=== PATIENT | male | born 1990 | race Caucasian/White ===

== ENCOUNTER 2021-08-30 11:45 | Outpatient (REF) | payer OTHER, SELFPAY ==
[2021-08-30 13:43] LABS: MANUAL DIFF FLAG NO
[2021-08-30 13:56] LABS: Basophils Percent Auto 0.6 % (0-2); Eosinophils Absolute Auto 0.2 X10*3/uL (0.0-0.4); Eosinophils Percent Auto 4.1 % (0-4); Hemoglobin 15.4 g/dl (14.0-18.0); Imm Gran Abs Auto 0.02 X10*3/uL (0.00-0.03); Imm Gran Pct Auto 0.4 % (0.0-0.4); Lymphocytes Absolute Auto 1.9 X10*3/uL (1.2-4.9); Lymphocytes Percent Auto 34.6 % (20-40); Mean Corpuscular HGB Conc 32.8 g/dl (31.0-36.0); Mean Corpuscular Hemoglobin 28.6 pg (27.0-33.0); Mean Corpuscular Volume 87.4 fL (80.0-98.0); Mean Platelet Volume 9.2 fL (9.4-12.4); Monocytes Absolute Auto 0.4 X10*3/uL (0.1-1.2); Neutrophils Absolute Auto 2.9 x10*3/uL (2.0-8.3); Neutrophils Percent Auto 53.3 % (45-73); Platelet Count 302 X10*3/uL (160-400); Red Blood Count 5.38 X10*6/uL (4.60-5.80); Red Cell Distribution Width 13.3 % (11.0-16.0); White Blood Count 5.4 X10*3/uL (4.8-10.8)
[2021-08-30 14:05] LABS: Appearance Urine CLEAR; Color Urine YELLOW; Glucose Urine UA NEG (NEG); Leukocyte Esterase Urine NEG (NEG); Nitrite Urine NEG (NEG); Urine Blood NEG (NEG); Urine Ketones NEG (NEG); Urine Protein NEG (NEG-TRACE)
[2021-08-30 14:17] LABS: Alanine Aminotransferase 12 U/L (0-40); Albumin Level 4.5 g/dL (3.5-5.0); Alkaline Phosphatase 64 U/L (39-117); Anion Gap 11 (12-20); Aspartate Amino Transferase 12 U/L (5-37); Bilirubin Total 0.5 mg/dL (0.0-1.0); Blood Urea Nitrogen 13 mg/dL (9-16); Calcium 9.8 mg/dL (8.4-10.2); Carbon Dioxide 26 mmol/L (22-29); Chloride 105 mmol/L (96-108); Cholesterol 308 mg/dL; Estimated Glomerular Filt Rate > 60; Glucose Fasting 97 mg/dL (60-99); HDL Cholesterol 57 mg/dL; LDL Cholesterol Calculated 228 mg/dl; Potassium 4.3 mmol/L (3.3-5.1); Sodium 138 mmol/L (135-145); Total Protein 7.6 g/dL (6.5-8.0); Triglycerides 118 mg/dL
[2021-08-30 14:43] LABS: TSH reflex Free T4 1.68 uIU/mL (0.32-4.0)
== END 2021-08-30 11:46 | disposition home or self-care (01) ==
LOC: HO.HMGCLDS 11:45
PROVIDERS: Visit Provider Nurse Practitioner Family
DX: F41.9 Anxiety disorder, unspecified (principal)
CPT/HCPCS: 36415; 80053; 80061; 81003; 84443; 85025

== ENCOUNTER 2022-09-03 10:20 | Outpatient (REF) | payer OTHER, SELFPAY ==
[2022-09-03 11:19] LABS: MANUAL DIFF FLAG NO
[2022-09-03 11:30] LABS: Appearance Urine Clear; Color Urine Yellow; Glucose Urine UA Negative (Negative); Leukocyte Esterase Urine Negative (Negative); Nitrite Urine Negative (Negative); PH 5.5 (5.0-9.0); Specific Gravity - Urine 1.025 (1.005-1.025); Urine Blood Negative (Negative); Urine Ketones Negative (Negative); Urine Protein Negative (Neg-Trace)
[2022-09-03 11:50] LABS: Basophils Percent Auto 0.5 % (0-2); Eosinophils Absolute Auto 0.2 X10*3/uL (0.0-0.4); Eosinophils Percent Auto 2.9 % (0-4); Hematocrit 47.1 % (42.0-52.0); Hemoglobin 15.7 g/dl (14.0-18.0); Imm Gran Abs Auto 0.01 X10*3/uL (0.00-0.03); Imm Gran Pct Auto 0.2 % (0.0-0.4); Lymphocytes Percent Auto 36.3 % (20-40); Mean Corpuscular HGB Conc 33.3 g/dl (31.0-36.0); Mean Corpuscular Volume 86.9 fL (80.0-98.0); Mean Platelet Volume 9.2 fL (9.4-12.4); Monocytes Absolute Auto 0.4 X10*3/uL (0.1-1.2); Monocytes Percent Auto 7.1 % (2-11); Neutrophils Absolute Auto 2.9 x10*3/uL (2.0-8.3); Platelet Count 327 X10*3/uL (160-400); Red Blood Count 5.42 X10*6/uL (4.60-5.80); Red Cell Distribution Width 13.2 % (11.0-16.0); White Blood Count 5.5 X10*3/uL (4.8-10.8)
[2022-09-03 13:05] LABS: Alanine Aminotransferase 13 U/L (0-40); Alkaline Phosphatase 56 U/L (39-117); Anion Gap 13 (12-20); Aspartate Amino Transferase 14 U/L (5-37); Bilirubin Total 0.5 mg/dL (0.0-1.0); Blood Urea Nitrogen 14 mg/dL (9-16); Calcium 9.3 mg/dL (8.4-10.2); Carbon Dioxide 24 mmol/L (22-29); Chloride 105 mmol/L (96-108); Cholesterol 265 mg/dL; Estimated Glomerular Filt Rate > 60; Glucose Fasting 86 mg/dL (60-99); HDL Cholesterol 53 mg/dL; LDL Cholesterol Calculated 187 mg/dl; Potassium 3.9 mmol/L (3.3-5.1); Sodium 138 mmol/L (135-145); Total Protein 7.1 g/dL (6.5-8.0); Triglycerides 129 mg/dL
[2022-09-03 13:27] LABS: TSH reflex Free T4 1.57 uIU/mL (0.32-4.0)
== END 2022-09-03 10:21 | disposition home or self-care (01) ==
LOC: HO.HMGCLDS 10:20
PROVIDERS: PCP Nurse Practitioner Family; Visit Provider Nurse Practitioner Family
DX: F41.9 Anxiety disorder, unspecified (principal)
CPT/HCPCS: 36415; 80053; 80061; 81003; 84443; 85025

== ENCOUNTER 2023-03-08 13:50 | Outpatient (REF) | payer OTHER, SELFPAY ==
[2023-03-08 16:05] LABS: MANUAL DIFF FLAG NO
[2023-03-08 16:10] LABS: Basophils Percent Auto 0.7 % (0-2); Eosinophils Absolute Auto 0.2 X10*3/uL (0.0-0.4); Eosinophils Percent Auto 3.4 % (0-4); Hematocrit 47.8 % (42.0-52.0); Hemoglobin 15.8 g/dl (14.0-18.0); Imm Gran Abs Auto 0.02 X10*3/uL (0.00-0.03); Imm Gran Pct Auto 0.4 % (0.0-0.4); Lymphocytes Percent Auto 35.4 % (20-40); Mean Corpuscular HGB Conc 33.1 g/dl (31.0-36.0); Mean Corpuscular Hemoglobin 29.6 pg (27.0-33.0); Mean Corpuscular Volume 89.7 fL (80.0-98.0); Mean Platelet Volume 9.2 fL (9.4-12.4); Monocytes Absolute Auto 0.5 X10*3/uL (0.1-1.2); Monocytes Percent Auto 8.1 % (2-11); Neutrophils Absolute Auto 2.9 x10*3/uL (2.0-8.3); Platelet Count 311 X10*3/uL (160-400); Red Blood Count 5.33 X10*6/uL (4.60-5.80); Red Cell Distribution Width 13.1 % (11.0-16.0); White Blood Count 5.5 X10*3/uL (4.8-10.8)
[2023-03-08 16:29] LABS: Alanine Aminotransferase 15 U/L (0-40); Albumin Level 4.2 g/dL (3.5-5.0); Alkaline Phosphatase 58 U/L (39-117); Anion Gap 10 (12-20); Aspartate Amino Transferase 13 U/L (5-37); Bilirubin Total 0.4 mg/dL (0.0-1.0); Blood Urea Nitrogen 14 mg/dL (9-16); Calcium 9.1 mg/dL (8.4-10.2); Carbon Dioxide 26 mmol/L (22-29); Chloride 104 mmol/L (96-108); Cholesterol 270 mg/dL (<200); Estimated Glomerular Filt Rate > 60; Glucose Fasting 89 mg/dL (60-99); HDL Cholesterol 55 mg/dL (>40); LDL Cholesterol Calculated 185 mg/dL (<100); Sodium 136 mmol/L (135-145); Total Protein 7.3 g/dL (6.5-8.0); Triglycerides 154 mg/dL (<150)
[2023-03-08 16:32] LABS: Appearance Urine Clear; Color Urine Yellow; Glucose Urine UA Negative (Negative); Leukocyte Esterase Urine Negative (Negative); Nitrite Urine Negative (Negative); PH 7.5 (5.0-9.0); Specific Gravity - Urine 1.015 (1.005-1.025); Urine Blood Negative (Negative); Urine Ketones Negative (Negative); Urine Protein Negative (Neg-Trace)
[2023-03-08 16:46] LABS: TSH reflex Free T4 1.77 uIU/mL (0.32-4.0)
== END 2023-03-08 13:51 | disposition home or self-care (01) ==
LOC: HO.HMGCLDS 13:50
PROVIDERS: PCP Nurse Practitioner Family; Visit Provider Nurse Practitioner Family
DX: Z00.00 Encounter for general adult medical examination without abnormal findings (principal); Z13.220 Encounter for screening for lipoid disorders; Z13.29 Encounter for screening for other suspected endocrine disorder
CPT/HCPCS: 36415; 80053; 80061; 81003; 84443; 85025

== ENCOUNTER 2023-03-12 10:50 | Outpatient (AMB) | payer OTHER, SELFPAY ==
--- NOTE | 2023-03-12 10:54 | MHC.PC.OV ---
Vital Signs 03/12/23 11:07 Height 5 ft 10 in Weight 291 lb BMI 41.7 BP 108/70 Blood Pressure Location Rt brachial Position Sitting Pulse 69 Pulse Source Pulse Oximeter Pulse Oximetry (%) 98 Oxygen Delivery Method Room Air Intake Visit Reasons: 6 Month F/Up Intake Note: Pt is here today for his 6mo. f/u Allergies No Known Allergies [No Known Allergies*] Allergy (Verified 03/12/23 11:07) Medication List - Last Reconciled 03/12/23 by EARNEST Jaimes clonazepam 0.5 mg PO DAILY PRN fluoxetine 40 mg PO gabapentin 400 mg PO TID Tobacco use date assessed: 03/12/23 Dental Screening Dental Screen Date: 03/12/23 Did you have a dental visit in the last 12 months?: No Was dental information given to patient?: Patient declined HPI 6 Month F/Up HPI Details anxiety and depression: back in october, pt's uncle passed, he was like my father . Pt reports having a psychiatrist and therapist. pt denies any SI or HI. Dyslipidemia: educated on proper diet, exercise, pt refuses to take anymore medication currently. [facility] Medical History Anxiety Chronic GERD Elevated liver enzymes Immunization declined Palpitations Family History Paternal Grandfather Mental health disorder Paternal Grandmother Mental health disorder Social History Housing: Apartment Patient Tobacco Use Status: Never used Tobacco e-Cigarette/Vaping Use: Never Used Second Hand Smoke Exposure: No service: No Current occupational status: employed Current occupation: [employer] Current occupational exposures/hazards: No Cognitive needs: No Hearing needs: No Vision needs: No Questionnaire Thrive Questionnaire Date Thrive assessed: 03/12/23 AUDIT C Alcohol Use Questionnaire (AUDIT-C) 1. How often do you have a drink containing alcohol?: Monthly or less 2. How many drinks containing alcohol do you have on a typical day when you are drinking?: 1 or 2 3. How often do you have six or more drinks on one occasion?: Never Total Score: 1 ERIC-7 AMB Questionnaire ERIC-7 Date ERIC - 7 assessed: 02/15/21 Source: Developed by Drs. Shayan Preston, Korin Sandra, Jd Solomon and colleagues, with an educational crispin from [employer]. Physical exam (Primary Care) Tobacco/Smoking Status: Tobacco use Status Tobacco use date assessed 09/06/22 03/12/23 10:55 Patient Tobacco Use Status Never used Tobacco 03/12/23 10:55 e-Cigarette/Vaping Use Never Used 03/12/23 10:55 Thrive Assessment: Date of Thrive Assessment Date Thrive assessed 02/15/21 03/12/23 10:55 Const General: cooperative and no acute distress Nutritional Appearance: obese and overweight Resp Effort & Inspection: normal respiratory effort Auscultation: clear to auscultation bilaterally Cardio Rate: regular rate Rhythm: regular rhythm Heart sounds: S1 normal heart sound present, S2 normal heart sound present and no murmurs Psych Appearance: grossly normal Mental Status: mental status grossly normal Speech and movement: Normal speech and movement present Affect: Anxious affect present Attitude: Avoids eye contact (attititude/behavior) Thought process: Normal thought process present Thought content: Normal thought content present Insight: Good insight present (Psych) Judgement: Good judgement present (Psych) Assessment and Plan Assessment & Plan (1) Dyslipidemia: Code(s): E78.5 - Hyperlipidemia, unspecified Plan: refuses statin, or any other medication currently (2) Anxiety: Code(s): F41.9 - Anxiety disorder, unspecified Plan: continue same med routine, follow up with psychiatry and a therapist Coding Level of Care Code Est Pt Level 3 (94529) Diagnoses Dyslipidemia E78.5 Anxiety F41.9
[2023-03-12 11:07] VITALS: BP 108/70; PULSE 69; O2SAT 98; BMI 41.7
== END 2023-03-12 11:53 | disposition home or self-care (01) ==
PROVIDERS: PCP Nurse Practitioner Family; Visit Provider Nurse Practitioner Family
DX: E78.5 Hyperlipidemia, unspecified (principal); F41.9 Anxiety disorder, unspecified
CPT/HCPCS: 99213

== ENCOUNTER 2023-09-06 10:22 | Outpatient (AMB) | payer OTHER, SELFPAY ==
--- NOTE | 2023-09-06 10:56 | MHC.OFFVIS ---
Vital Signs 09/06/23 11:02 BP 118/80 Blood Pressure Location Rt brachial Position Sitting Pulse 79 Pulse Source Pulse Oximeter Pulse Oximetry (%) 98 Oxygen Delivery Method Room Air Intake Visit Reasons: INP-Sleep apnea, unspecified-Unable to lvm Intake Note: Patient presents for apnea evaluation. feeing tired all the time waking up gasping with rapid heartbeat and vivid dreams . Allergies No Known Allergies [No Known Allergies*] Allergy (Verified 09/06/23 11:03) Medication List - Last Reconciled 09/09/23 by ALISTAIR Coe clonazepam 0.5 mg PO DAILY PRN fluoxetine 40 mg PO gabapentin 400 mg PO TID HPI Comments Details: 33-yr-old male presents for new in-person patient visit for sleep consultation. Patient reports that he would like to evaluate his sleep, as he is tired of feeling tired . PMH- anxiety, HLD, obesity- pt is motivated to lose weight- but states he needs nutrition support. Sleep questionnaire: Have you ever been diagnosed with a sleep disorder? No Have you ever had a sleep study in the past? No Have you ever been treated for a sleep disorder? No Do you take medications for a sleep disorder? No Do you have difficulty initiating sleep? Yes Do you have difficulty maintaining sleep? Yes Wakes up frequently- but can easily fall back asleep Do you wake up tired? Yes Do you have daytime tiredness or fatigue? Yes Do you easily fall asleep when inactive? Yes Do you snore? Yes Do you wake up gasping at night? Yes Do you have episodes of apneas? Unaware Do you have episodes of nocturnal chest pain or dyspnea? Feels that he needs to take a few breathes after gasping arousals to feel normal. Do you have bruxism? Probably. If yes, do you wear a mouth guard when sleeping?No Do you have headaches upon awakening? Sometimes. The headache can linger. Denies NETTLES a/w photophobia, phonophobia, or nausea. Do you wake up with dry mouth or throat? Yes Do you have GERD? Rarely Do you have nocturia? no- just voids once a night Do you have nocturnal leg cramps? No Do you have symptoms of restless legs? Fidgetty- unsure if at rest, but more so if anxious. Will shake his leg if watching TV. If anxious, has to take a walk. Do you act out your dreams? Feels like he is talking in his sleep, or feel like he is yelling Do you have sleep paralysis? No Do you have drop attacks? No Do you ever have hypnogenic hallucinations? Vivid dreams- can see dream when he wakes up. Hypersomnolence questionnaire: Have you ever had episodes of sudden weakness? Maybe- can feel weak sometimes Have you ever had episodes of sudden weakness associated with strong emotions? Maybe Sleep hygiene questionnaire: What is your usual sleep routine? Usual bedtime is at 11pm-1am; Usual wake-up time is at 6:30am or 10:30am. Do you take naps? love naps Is your sleep environment cool, dark, and quiet? keeps room cool and dark, uses some TV for background noise Do you exercise? He has recently started doing a home exercise program most days. Walks some days. On his feet all day at work. Do you take caffeine or other stimulants? Does not really like caffeine. Do you use electronics in bed? TV for background What is your work schedule? 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 [facility] Medical History Anxiety Chronic GERD Elevated liver enzymes Immunization declined Palpitations Family History Paternal Grandfather Mental health disorder Paternal Grandmother Mental health disorder Social History Housing: Apartment Patient Tobacco Use Status: Never used Tobacco e-Cigarette/Vaping Use: Never Used Second Hand Smoke Exposure: No service: No Current occupational status: employed Current occupation: [employer] Current occupational exposures/hazards: No Cognitive needs: No Hearing needs: No Vision needs: No Physical Exam Vital Signs: Last Vital Signs Pulse 79 09/06/23 11:02 BP 118/80 09/06/23 11:02 Pulse Ox 98 09/06/23 11:02 Oxygen Delivery Method Room Air 09/06/23 11:02 Const General: no acute distress Orientation/consciousness: patient oriented x3 HEENT Other: Mallampati stage 4 Resp Effort & Inspection: normal respiratory effort and able to speak in complete sentences Auscultation: clear to auscultation bilaterally Cardio Rate: regular rate Rhythm: regular rhythm Heart sounds: S1 normal heart sound present and S2 normal heart sound present Neuro General: patient oriented x3 Motor exam (neuro): 5/5 motor strength present throughout Psych Mental Status: mental status grossly normal Speech and movement: Normal speech and movement present Attitude: cooperative Assessment & Plan Assessment & Plan (1) Excessive daytime sleepiness: Code(s): G47.19 - Other hypersomnia Category: Medical (2) Sleep difficulties: Code(s): G47.9 - Sleep disorder, unspecified Category: Medical (3) Snoring: Code(s): R06.83 - Snoring Category: Medical (4) BMI 40.0-44.9, adult: Code(s): Z68.41 - Body mass index [BMI] 40.0-44.9, adult Category: Medical Plan Pt is advised to undergo sleep study to assess for sleep apnea: in-lab PSG. Will take the liberty of referring pt for weight management consult. Will f/u with pt after study to discuss results and appropriate treatment options. Pt to call with any worsening concerns or questions. Orders: Orders RT PSG in-lab sleep study Today G47.19 - Other hypersomnia, G47.9 - Sleep disorder, unspecified, R06.83 - Snoring, Z68.41 - Body mass index [BMI] 40.0-44.9, adult Referrals Medical Weight Management Referral Z68.41 - Body mass index [BMI] 40.0-44.9, adult Coding Level of Care Code New Pt Level 4 (44026) Diagnoses Excessive daytime sleepiness G47.19 Sleep difficulties G47.9 Snoring R06.83 BMI 40.0-44.9, adult Z68.41 [place] Sleepiness Scale Questions Sitting and reading: high chance of dozing Watching TV: high chance of dozing Sitting inactive in a theater, movie etc.: moderate chance of dozing As a passenger in a car for an hour without break: high chance of dozing Lying down in the afternoon when circumstances permit: high chance of dozing Sitting and talking to someone: would never doze Sitting quietly after lunch without alcohol: high chance of dozing In a car, while stopped for a few minutes in the traffic: would never doze ESS < 10: normal, ESS > 12: pathologic: 17
[2023-09-06 11:02] VITALS: BP 118/80; PULSE 79; O2SAT 98
== END 2023-09-06 11:53 | disposition home or self-care (01) ==
PROVIDERS: PCP Nurse Practitioner Family; Visit Provider Nurse Practitioner Family
DX: G47.19 Other hypersomnia (principal); G47.9 Sleep disorder, unspecified; R06.83 Snoring; Z68.41 Body mass index [BMI] 40.0-44.9, adult
CPT/HCPCS: 99204

== ENCOUNTER → 2023-09-06 10:22 | Outpatient (BNVA) | payer OTHER, SELFPAY | PROVIDERS: PCP Nurse Practitioner Family; Visit Provider Nurse Practitioner Family | DX: G47.19 Other hypersomnia (principal); G47.9 Sleep disorder, unspecified; R06.83 Snoring | CPT/HCPCS: 99202 ==

== ENCOUNTER 2023-10-01 11:12 | Outpatient (REF) | payer OTHER, SELFPAY ==
[2023-10-01 13:34] LABS: Cholesterol 249 mg/dL (<200); HDL Cholesterol 49 mg/dL (>40); LDL Cholesterol Calculated 182 mg/dL (<100); Triglycerides 90 mg/dL (<150)
== END 2023-10-01 11:13 | disposition home or self-care (01) ==
LOC: HO.HMGCLDS 11:12
PROVIDERS: PCP Nurse Practitioner Family; Visit Provider Nurse Practitioner Family
DX: E78.5 Hyperlipidemia, unspecified (principal)
CPT/HCPCS: 36415; 80061

== ENCOUNTER 2023-10-02 10:32 | Outpatient (AMB) | payer OTHER, SELFPAY ==
--- NOTE | 2023-10-02 10:53 | MHC.PC.OV ---
Vital Signs 10/02/23 10:56 Height 5 ft 10 in Weight 268 lb BMI 38.4 BP 108/70 Blood Pressure Location Rt brachial Position Sitting Pulse 78 Pulse Source Pulse Oximeter Pulse Oximetry (%) 97 Oxygen Delivery Method Room Air Intake Visit Reasons: Annual PE Intake Note: Patient here for physical exam. Allergies No Known Allergies [No Known Allergies*] Allergy (Verified 10/02/23 10:56) Tobacco use date assessed: 03/12/23 Dental Screening Dental Screen Date: 03/12/23 HPI Annual PE HPI Details Pt is here for a PE. Will order labs. Pt's last lipids were elevated. Refuses medication for this. Will continue to monitor. Pt is working on weight loss. PFSH Medical History Immunization declined Anxiety Elevated liver enzymes Palpitations Chronic GERD Family History Paternal Grandfather Mental health disorder Paternal Grandmother Mental health disorder Social History Housing: Apartment Patient Tobacco Use Status: Never used Tobacco e-Cigarette/Vaping Use: Never Used Second Hand Smoke Exposure: No service: No Current occupational status: employed Current occupation: [employer] Current occupational exposures/hazards: No Cognitive needs: No Hearing needs: No Vision needs: No Questionnaire PHQ-9 Over the last 2 weeks, how often have you been bothered by any of the following problems? 1. Little interest or pleasure in doing things: several days 2. Feeling down, depressed, or hopeless: several days 3. Trouble falling or staying asleep, or sleeping too much: more than half the days 4. Feeling tired or having little energy: more than half the days 5. Poor appetite or overeating: several days 6. Feeling bad about yourself - or that you are a failure or have let yourself or your family down: several days 7. Trouble concentrating on things, such as reading the newspaper or watching television: several days 8. Moving or speaking so slowly that other people could have noticed. Or the opposite - being so fidgety or restless that you have been moving around a lot more than usual: several days 9. Thoughts that you would be better off or of hurting yourself in some way: not at all Total score: 10 Depression Screening Interpretation: Positive (has a psychiatrist and therapist, denies any SI or HI) Depression Screening Follow-up: Existing condition and In treatment Depression Screening Done: Yes 55289 - PHQ-9 Billing: Yes Source: Developed by Drs. Shayan Preston, Korin Sandra, Jd Solomon and colleagues, with an educational crispin from [employer]. Thrive Questionnaire Date Thrive assessed: 03/12/23 I am a: Patient What is your living situation today?: I have a steady place to live Within the past 12 months, did the food you bought not last and you didn't have the money to get more?: Never true Within the past 12 months, did you worry whether your food would run out before you got money to buy more?: Never true Do you have trouble paying for medicines?: No Do you have trouble getting transportation to medical appointments?: No Do you have trouble paying your heating and electricity bill?: No Do you have trouble taking care of your child, family member or friend?: No Do you have trouble with day-to-day activities such as bathing, preparing meals, shopping, managing finances, etc.?: No Are you currently unemployed and looking for a job?: No Are you interested in more education?: Yes Please select the resources that you would like help with: Housing/Correction Currently or been in a relationship where the following occur: No concerns reported THRIVE Score: 0 AUDIT C Alcohol Use Questionnaire (AUDIT-C) 1. How often do you have a drink containing alcohol?: Never Total Score: 0 Score Reviewed/Action Taken: No ERIC-7 AMB Questionnaire ERIC-7 Date ERIC - 7 assessed: 10/02/23 Feeling nervous, anxious, or on edge: 1 = Several days Not being able to stop or control worryin = Several days Worrying too much about different things: 1 = Several days Trouble relaxin = Several days Being so restless that it is hard to sit still: 1 = Several days Becoming easily annoyed or irritable: 1 = Several days Feeling afraid as if something awful might happen: 0 = Not at all Total ERIC-7 score (0-4 normal; 5-9 mild; 10-14 moderate; 15-21 severe): 6 Source: Developed by Drs. Shayan Preston, Korin Sandra, Jd Solomon and colleagues, with an educational crispin from [employer]. ERIC-7 Assessment Billing ERIC-7 Assessment Tool: ERIC-7 Assessment 10958 Review of Systems Const Denies chills and Denies fever(s) Eyes Denies blurry vision ENT Denies vertigo, Denies dizziness and Denies sore throat Card Denies chest pain at rest, Denies chest pain with activity, Denies diaphoresis, Denies dyspnea and Denies dyspnea on exertion Resp Denies cough, Denies dyspnea, Denies dyspnea on exertion and Denies wheezing GI Denies abdominal pain, Denies melena, Denies hematochezia, Denies constipation, Denies diarrhea and Denies loose stools Denies hematuria Musc Denies numbness and Denies tingling Skin/Breast Denies lesions Neuro Denies vertigo, Denies dizziness, Denies numbness and Denies tingling Psych Denies anxiety, Denies depression, Denies homicidal ideation, Denies suicidal ideation and Denies other (substance abuse) Aller/Immun Denies wheezing Physical exam (Primary Care) Vital Signs: Last Vital Signs Pulse 78 10/02/23 10:56 BP 108/70 10/02/23 10:56 Pulse Ox 97 10/02/23 10:56 Oxygen Delivery Method Room Air 10/02/23 10:56 BMI result Body Mass Index 38.4 Tobacco/Smoking Status: Tobacco use Status Tobacco use date assessed 03/12/23 10/02/23 10:56 Patient Tobacco Use Status Never used Tobacco 10/02/23 10:56 e-Cigarette/Vaping Use Never Used 10/02/23 10:56 PHQ-9: PHQ-9 Score PHQ-9: Total score 10 10/02/23 11:07 Depression Screening Interpretation: Positive (has a psychiatrist and therapist, denies any SI or HI) Depression Screening Follow-up: Existing condition and In treatment Thrive Assessment: Date of Thrive Assessment Date Thrive assessed 03/12/23 10/02/23 10:56 Currently or been in a relationship where the following occur: No concerns reported Const General: cooperative Nutritional Appearance: well nourished and obese Orientation/consciousness: patient oriented x3 HENMT Head: Yes normal to inspection, Yes normocephalic and Yes atraumatic Ears: TM's normal bilaterally Eyes General: appearance normal, both eyes and all related structures Alignment and Position: alignment normal and position normal Neck Neck: Yes normal visual inspection and Yes no lymphadenopathy Thyroid: Thyroid normal Resp Effort & Inspection: normal respiratory effort Auscultation: clear to auscultation bilaterally Cardio Rate: regular rate Rhythm: regular rhythm Heart sounds: S1 normal heart sound present, S2 normal heart sound present and no murmurs GI Palpation (GI): Soft to palpation and nontender Auscultation: normal bowel sounds Male General Exam: Yes normal external exam Penis: normal penis Scrotum: scrotum normal, testes descended bilaterally and no inguinal hernias Testes: no testicular mass Skin Rashes: no rashes Neuro General: patient oriented x3, moves all extremities, no focal motor deficits and deep tendon reflexes 2+ bilaterally Romberg Test: Negative Psych Appearance: grossly normal Mental Status: mental status grossly normal Speech and movement: Normal speech and movement present Affect: normal affect Attitude: cooperative Thought process: Normal thought process present Thought content: Normal thought content present Insight: Good insight present (Psych) Judgement: Good judgement present (Psych) Assessment and Plan Assessment & Plan (1) Physical exam: Code(s): Z.00 - Encounter for general adult medical examination without abnormal findings Plan: Labs ordered Plan The patient agreed to the use of a registered medical assistant for this encounter. Scribed for EARNEST Brantley by Rayna Colon registered medical assistant, on 10/02/2023 at 11:10 EST. Orders: Orders Complete Blood Count Auto Diff 2 Months Z00.00 - Encounter for general adult medical examination without abnormal findings TSH reflex Free T4 2 Months Z00.00 - Encounter for general adult medical examination without abnormal findings UA CC w/rflx Micro + Cult 2 Months Z00.00 - Encounter for general adult medical examination without abnormal findings Coding Level of Care Code Est Pt Prev Care 18-39y(92445) Diagnoses Physical exam Z00.00 Additional Codes ERIC-7 Assessment Billing - ERIC-7 Assessment Tool: ERIC-7 Assessment 55219 ([id number])
[2023-10-02 10:56] VITALS: BP 108/70; PULSE 78; O2SAT 97; BMI 38.4
== END 2023-10-02 11:17 | disposition home or self-care (01) ==
PROVIDERS: PCP Nurse Practitioner Family; Visit Provider Nurse Practitioner Family
DX: Z00.00 Encounter for general adult medical examination without abnormal findings (principal)
CPT/HCPCS: 99395

== ENCOUNTER → 2023-10-10 20:30 | Outpatient (REF) | payer OTHER, SELFPAY | LOC: HO.SL 20:30 | PROVIDERS: PCP Nurse Practitioner Family; Visit Provider Nurse Practitioner Family | DX: G47.19 Other hypersomnia (principal); Z68.41 Body mass index [BMI] 40.0-44.9, adult; R06.83 Snoring; G47.9 Sleep disorder, unspecified | CPT/HCPCS: 95810 ==

== ENCOUNTER → 2023-10-10 22:24 | Outpatient (BNV) | payer OTHER, SELFPAY | PROVIDERS: PCP Nurse Practitioner Family; Visit Provider Psychiatry & Neurology Neurology | DX: G47.19 Other hypersomnia (principal); R06.83 Snoring | CPT/HCPCS: 95810 ==

== ENCOUNTER 2024-03-17 11:13 | Outpatient (REF) | payer OTHER, SELFPAY ==
[2024-03-17 13:10] LABS: MANUAL DIFF FLAG NO
[2024-03-17 13:26] LABS: Basophils Percent Auto 0.4 % (0-2); Eosinophils Absolute Auto 0.2 X10*3/uL (0.0-0.4); Eosinophils Percent Auto 3.1 % (0-4); Hematocrit 48.4 % (42.0-52.0); Imm Gran Abs Auto 0.04 X10*3/uL (0.00-0.03); Imm Gran Pct Auto 0.6 % (0.0-0.4); Lymphocytes Absolute Auto 2.4 X10*3/uL (1.2-4.9); Lymphocytes Percent Auto 34.7 % (20-40); Mean Corpuscular HGB Conc 33.1 g/dl (31.0-36.0); Mean Corpuscular Hemoglobin 29.4 pg (27.0-33.0); Mean Platelet Volume 9.1 fL (9.4-12.4); Monocytes Absolute Auto 0.6 X10*3/uL (0.1-1.2); Neutrophils Absolute Auto 3.7 x10*3/uL (2.0-8.3); Neutrophils Percent Auto 53.2 % (45-73); Platelet Count 314 X10*3/uL (160-400); Red Blood Count 5.44 X10*6/uL (4.60-5.80); Red Cell Distribution Width 13.1 % (11.0-16.0); White Blood Count 6.9 X10*3/uL (4.8-10.8)
[2024-03-17 13:40] LABS: Appearance Urine Clear; Color Urine Yellow; Glucose Urine UA Negative (Negative); Leukocyte Esterase Urine Negative (Negative); Nitrite Urine Negative (Negative); Specific Gravity - Urine >= 1.030 (1.005-1.025); Urine Blood Negative (Negative); Urine Ketones Negative (Negative); Urine Protein Negative (Neg-Trace)
[2024-03-17 14:14] LABS: Alanine Aminotransferase 15 U/L (0-40); Albumin Level 4.3 g/dL (3.5-5.0); Alkaline Phosphatase 59 U/L (39-117); Anion Gap 10 (12-20); Aspartate Amino Transferase 18 U/L (5-37); Bilirubin Total 0.4 mg/dL (0.0-1.0); Blood Urea Nitrogen 23 mg/dL (9-16); Calcium 9.1 mg/dL (8.4-10.2); Carbon Dioxide 26 mmol/L (22-29); Chloride 109 mmol/L (96-108); Cholesterol 292 mg/dL (<200); Estimated Glomerular Filt Rate > 60; Glucose Fasting 94 mg/dL (60-99); HDL Cholesterol 62 mg/dL (>40); LDL Cholesterol Calculated 202 mg/dL (<100); Potassium 3.7 mmol/L (3.3-5.1); Sodium 141 mmol/L (135-145); Total Protein 7.3 g/dL (6.5-8.0); Triglycerides 141 mg/dL (<150)
[2024-03-17 14:16] LABS: TSH reflex Free T4 3.07 uIU/mL (0.32-4.0)
== END 2024-03-17 11:14 | disposition home or self-care (01) ==
LOC: HO.HMGCLDS 11:13
PROVIDERS: PCP Nurse Practitioner Family; Visit Provider Nurse Practitioner Family
DX: Z00.00 Encounter for general adult medical examination without abnormal findings (principal); E78.5 Hyperlipidemia, unspecified
CPT/HCPCS: 36415; 80053; 80061; 81003; 84443; 85025

== ENCOUNTER 2024-03-19 10:22 | Outpatient (AMB) | payer OTHER, SELFPAY ==
--- NOTE | 2024-03-19 10:30 | MHC.PC.OV ---
Vital Signs 03/19/24 10:31 Height 5 ft 10 in Weight 262 lb BMI 37.6 BP 110/70 Blood Pressure Location Rt brachial Position Sitting Pulse 82 Pulse Source Pulse Oximeter Pulse Oximetry (%) 98 Oxygen Delivery Method Room Air Intake Visit Reasons: 6M F/U Intake Note: pt is here for 6 mon f/up Washer Machine Required: No Accompanied by: Self / Same As Patient Allergies No Known Allergies [No Known Allergies*] Allergy (Verified 03/19/24 10:31) Medication List - Last Reconciled 03/19/24 by HEAVENLY Jaimes clonazepam 0.5 mg PO DAILY PRN fluoxetine 40 mg PO gabapentin 300 mg PO BID Tobacco use date assessed: 03/19/24 Dental Screening Dental Screen Date: 03/19/24 Did you have a dental visit in the last 12 months?: Yes Did you have a dental problem in the last 6 months where you did not have access to dental care?: No Was dental information given to patient?: Patient has dentist HPI 6M F/U HPI Details Chief Complaint Follow-up on elevated cholesterol levels History of Present Illness The patient is a 34-year-old male presenting for a follow-up related to elevated cholesterol levels. His recent laboratory tests revealed hypercholesterolemia with a cholesterol level of 292 mg/dL and an LDL of 202 mg/dL. Although the cholesterol levels are significantly elevated, the patient declines pharmacologic intervention. He has a prior diagnosis of obesity which is being managed without medication. The patient indicates a strong preference for lifestyle modification, citing plans to improve his diet and increase exercise. The progress of hypercholesterolemia has not been previously treated pharmacologically. Current status involves non-pharmacological management with a commitment to dietary and exercise interventions. The patient plans to repeat laboratory tests in approximately 2 to 4 months to assess the effectiveness of lifestyle changes. refused vaccinations Social History - Reports intention to improve dietary habits. - Plans to increase physical exercise. Health Maintenance - Discussed lifestyle modification focusing on diet and exercise for cardiovascular risk reduction. Review of Systems Physical Exam General: Cooperative, healthy appearing, comfortable, no acute distress and well developed, obese Orientation: Patient oriented x3 Limitations: No limitations, flat affect Head: Normal to inspection Nose: Normal external nose present Face and sinus: Normal facial exam Eyes: Appearance normal, both eyes and all related structures Neck: Normal visual inspection and Yes full ROM Respiratory: Normal respiratory effort and able to speak in complete sentences. Clear to auscultation bilaterally Cardiovascular: Regular rate and rhythm. Normal S1 and S2 Skin: No rashes or lesions noted Neuro: Patient oriented x3 Extremities: Normal to inspection Results - Labs: Cholesterol total 292 mg/dL, LDL 202 mg/dL Plan - The patient declines statin therapy for hypercholesterolemia. Instead, he will focus on dietary modifications and increased physical activity. - Repeat laboratory tests, including lipid profile, are scheduled in approximately 2 to 4 months to monitor changes following lifestyle adjustments. - Schedule follow-up visit in six months for a full physical examination. Patient was informed and verbally consented to the use of an ambient scribe for clinic note documentation during this visit. Discussion Notes The patient and I discussed his elevated cholesterol levels and the associated cardiovascular risks. I recommended statin therapy as a potential option to reduce cholesterol levels; however, he declined any medication at this time. We emphasized the importance of lifestyle changes, including dietary adjustments and increased physical activity, to manage his hypercholesterolemia and obesity. We also agreed to repeat the laboratory tests in 2 to 4 months to evaluate the impact of these lifestyle changes. I plan to perform a full physical examination during the follow-up in six months. Patient Instructions - Adhere to a heart-healthy diet to assist in lowering cholesterol levels. - Engage in regular physical exercise as part of lifestyle modification. - Plan to return for follow-up laboratory tests in 2 to 4 months. - Schedule a comprehensive physical examination in six months. [facility] Medical History Immunization declined Anxiety Elevated liver enzymes Palpitations Chronic GERD Surgical History No pertinent past surgical history Family History Paternal Grandfather Mental health disorder Paternal Grandmother Mental health disorder Social History Housing: Apartment Patient Tobacco Use Status: Never used Tobacco e-Cigarette/Vaping Use: Never Used Second Hand Smoke Exposure: No service: No Current occupational status: employed Current occupation: [employer] Current occupational exposures/hazards: No Cognitive needs: No Hearing needs: No Vision needs: No Questionnaire PHQ-9 Over the last 2 weeks, how often have you been bothered by any of the following problems? 1. Little interest or pleasure in doing things: several days 2. Feeling down, depressed, or hopeless: several days 3. Trouble falling or staying asleep, or sleeping too much: more than half the days 4. Feeling tired or having little energy: more than half the days 5. Poor appetite or overeating: several days 6. Feeling bad about yourself - or that you are a failure or have let yourself or your family down: several days 7. Trouble concentrating on things, such as reading the newspaper or watching television: several days 8. Moving or speaking so slowly that other people could have noticed. Or the opposite - being so fidgety or restless that you have been moving around a lot more than usual: not at all 9. Thoughts that you would be better off or of hurting yourself in some way: not at all Total score: 9 Depression Screening Interpretation: Positive Depression Screening Done: Yes 03229 - PHQ-9 Billing: Yes Source: Developed by Drs. Shayan Preston, Korin Sandra, Jd Solomon and colleagues, with an educational crispin from [employer]. Thrive Questionnaire Date Thrive assessed: 03/19/24 I am a: Patient What is your living situation today?: I have a steady place to live Within the past 12 months, did the food you bought not last and you didn't have the money to get more?: Never true Within the past 12 months, did you worry whether your food would run out before you got money to buy more?: Never true Do you have trouble paying for medicines?: I choose not to answer this question Do you have trouble getting transportation to medical appointments?: No Do you have trouble paying your heating and electricity bill?: No Do you have trouble taking care of your child, family member or friend?: No Do you have trouble with day-to-day activities such as bathing, preparing meals, shopping, managing finances, etc.?: No Are you currently unemployed and looking for a job?: No Are you interested in more education?: Yes Please select the resources that you would like help with: None Currently or been in a relationship where the following occur: No concerns reported THRIVE Score: 0 AUDIT C Alcohol Use Questionnaire (AUDIT-C) 1. How often do you have a drink containing alcohol?: Monthly or less 2. How many drinks containing alcohol do you have on a typical day when you are drinking?: 1 or 2 3. How often do you have six or more drinks on one occasion?: Less than monthly Total Score: 2 Score Reviewed/Action Taken: Yes ERIC-7 AMB Questionnaire ERIC-7 Date ERIC - 7 assessed: 03/19/24 Feeling nervous, anxious, or on edge: 1 = Several days Not being able to stop or control worryin = Several days Worrying too much about different things: 1 = Several days Trouble relaxin = Not at all Being so restless that it is hard to sit still: 0 = Not at all Becoming easily annoyed or irritable: 1 = Several days Feeling afraid as if something awful might happen: 0 = Not at all Total ERIC-7 score (0-4 normal; 5-9 mild; 10-14 moderate; 15-21 severe): 4 Source: Developed by Drs. Shayan Preston, Korin Sandra, Jd Solomon and colleagues, with an educational crispin from [employer]. ERIC-7 Assessment Billing ERIC-7 Assessment Tool: ERIC-7 Assessment 84872 Physical exam (Primary Care) Vital Signs: Last Vital Signs Pulse 82 03/19/24 10:31 BP 110/70 03/19/24 10:31 Pulse Ox 98 03/19/24 10:31 Oxygen Delivery Method Room Air 03/19/24 10:31 BMI result Body Mass Index 37.6 Tobacco/Smoking Status: Tobacco use Status Tobacco use date assessed 03/19/24 03/19/24 10:32 Patient Tobacco Use Status Never used Tobacco 03/19/24 10:32 e-Cigarette/Vaping Use Never Used 03/19/24 10:32 PHQ-9: PHQ-9 Score PHQ-9: Total score 9 03/19/24 10:52 Depression Screening Interpretation: Positive Thrive Assessment: Date of Thrive Assessment Date Thrive assessed 03/19/24 03/19/24 10:32 Currently or been in a relationship where the following occur: No concerns reported Coding Level of Care Code Est Pt Level 3 (23536) Diagnoses Dyslipidemia E78.5 Additional Codes ERIC-7 Assessment Billing - ERCI-7 Assessment Tool: ERIC-7 Assessment 69723 ([id number]) PHQ-9 - 55506 - PHQ-9 Billing: Yes ([id number]) Assessment & Plan Assessment & Plan (1) Dyslipidemia: Code(s): E78.5 - Hyperlipidemia, unspecified Category: Medical Plan . Orders: Orders Comprehensive [place]. Panel Fast 2 Months E78.5 - Hyperlipidemia, unspecified Lipid Panel 2 Months E78.5 - Hyperlipidemia, unspecified
[2024-03-19 10:31] VITALS: BP 110/70; PULSE 82; O2SAT 98; BMI 37.6
== END 2024-03-19 11:07 | disposition home or self-care (01) ==
PROVIDERS: PCP Nurse Practitioner Family; Visit Provider Nurse Practitioner Family
DX: E78.5 Hyperlipidemia, unspecified (principal)

== ENCOUNTER → 2024-03-19 10:22 | Outpatient (BNVA) | payer OTHER, SELFPAY | PROVIDERS: PCP Nurse Practitioner Family; Visit Provider Nurse Practitioner Family | DX: E78.00 Pure hypercholesterolemia, unspecified (principal) | CPT/HCPCS: 96127; 99212 ==

== ENCOUNTER 2024-08-30 09:14 | Emergency (ER) | payer OTHER, SELFPAY ==
[2024-08-30 09:21] VITALS: BP 117/103; PULSE 107; RESP 18; TEMP 36.4; O2SAT 98; BMI 36.3
--- NOTE | 2024-08-30 09:41 | ECG_ITS ---
Test Reason : CHECKQT Blood Pressure : */* mmHG Vent. Rate : 83 BPM Atrial Rate : 83 BPM P-R Int : 116 ms QRS Dur : 88 ms QT Int : 386 ms P-R-T Axes : 14 -2 24 degrees QTcB Int : 453 ms Normal sinus rhythm Minimal voltage criteria for LVH, may be normal variant ( R in aVL ) Possible Lateral infarct , age undetermined Abnormal ECG When compared with ECG of 10-Apr-2016 20:57, No significant change was found Referred By: Chey Siegel Electronically Signed By: KENDRA SPEARS
--- NOTE | 2024-08-30 09:41 | ED.PSYCH ---
HPI - Psych General Chief Complaint: Psychiatric Symptoms Stated Complaint: requesting mental eval Time Seen by Provider: 08/30/24 09:40 Source: patient, RN notes reviewed and old records reviewed Mode of arrival: ambulatory History of Present Illness ED Provider: Robbin MCGREGOR Narrative: Patient is a 34-year-old male with a history of anxiety, hypercholesterolemia presenting to the emergency department reporting that he has been having racing thoughts, anxiety with physical manifestations of chest tightness and shortness of breath. States that he ?gets in these loops? where he perseverates about his thoughts, states I know I'm [place], but I feel like I don't know who I actually am. He expresses frustration about having these episodes and reports passive SI, stating that he feels this would be the only way to end his intrusive thoughts. Reports that he is working and has still been able to go to work but these thoughts interfere with his performance. States he would not actually do anything to harm himself because he would not put his family through that. States that he has a psychiatrist and therapist and takes his medications as prescribed. Denies homicidal ideation, auditory or visual hallucinations. Denies any current physical complaints. MD complaint: feels depressed and anxiety Related Data Home Medications ?Medication ?Instructions ?Recorded ?Confirmed clonazepam 0.5 mg tablet 0.5 mg PO DAILY PRN anxiety 08/30/21 08/30/24 fluoxetine 20 mg capsule 40 mg PO DAILY 08/30/21 08/30/24 gabapentin 300 mg capsule 300 mg PO TID 08/30/24 08/30/24 Allergies Allergy/AdvReac Type Severity Reaction Status Date / Time No Known Allergies (No Known Allergy Verified 08/30/24 09:27 Allergies*) Review of Systems Review of Systems: As per HPI Yes all other systems are reviewed and are negative Constitutional: Constitutional: Reports as per HPI [facility] Past Medical History Medical History Immunization declined Anxiety Elevated liver enzymes Palpitations Chronic GERD Surgical History No pertinent past surgical history Family History Family History Paternal Grandfather Mental health disorder Paternal Grandmother Mental health disorder Social History Social History Housing: Apartment Patient Tobacco Use Status: Never used Tobacco Smoked in Last 30 Days: No e-Cigarette/Vaping Use: Never Used Second Hand Smoke Exposure: No Use of substances other than those prescribed or required for medical reasons: No Advance Directives: No Advance Directives Information Provided: No Do you have a plan to hurt others: No Plan service: No Current occupational status: employed Current occupation: [employer] Current occupational exposures/hazards: No Cognitive needs: No Hearing needs: No Vision needs: No Physical Exam Vital Signs: Vital Signs: Last Vital Signs Temp 97.4 F 08/31/24 10:17 Pulse 104 H 08/31/24 10:17 Resp 18 08/31/24 10:17 BP 135/76 08/31/24 10:17 Pulse Ox 98 08/31/24 10:17 O2 Del Method Room Air 08/31/24 05:37 BMI result Body Mass Index 36.3 Vital signs have been reviewed and appear to be correct. Blood pressure elevated. Heart rate slightly tachycardic. Respiratory rate normal. Temperature normal. Oxygen saturation normal. Const: General: cooperative, healthy appearing and no acute distress Orientation/consciousness: oriented to person, oriented to place, oriented to time and patient oriented x3 Limitations: no limitations HEENT: Head: Yes normocephalic and Yes atraumatic Ears: external ears normal General nose exam: Normal external nose present Face and sinus: Yes face symmetric Mouth: oropharynx normal and moist mucous membranes Throat: Yes uvula midline Eyes: Pupils: Equal, round and reactive pupils present Neck: Neck: Yes normal visual inspection and Yes supple Resp: Effort & Inspection: normal respiratory effort and able to speak in complete sentences Auscultation: clear to auscultation bilaterally Cardio: Rate: regular rate Rhythm: regular rhythm Heart sounds: S1 normal heart sound present and S2 normal heart sound present GI: Palpation (GI): Soft to palpation and nontender Auscultation: normoactive bowel sounds : General: Yes no CVA tenderness Back/Spine/Pelvis: Back: no CVA tenderness Skin: General skin exam: elasticity normal and turgor normal Neuro: General: oriented to person, oriented to place, oriented to time, patient oriented x3, moves all extremities, no focal motor deficits and CN's II-XI intact bilaterally Cranial nerves: Yes Equal, round and reactive pupils present Cognition (Neuro): normal cognition Extrem: General: Yes full ROM, Yes no pedal edema and Yes no calf tenderness Psych: Appearance: grossly normal Mental Status: mental status grossly normal Speech and movement: Pressured speech present Affect: Hostile affect present Attitude: Guarded attititude/behavior present Thought process: Normal thought process present Thought content: Suicidality present (passive, no plan), no homicidality and no hallucinations Insight: Fair insight present (Psych) Judgement: Fair judgement present (Psych) Course Reevaluation(s) Reevaluation #1: Notified by YAAKOV Jenkins that patient escalating, PO Ativan and haldol ordered and patient moved to private room Time: 10:40 Reevaluation #2: Per CARE team evaluation, patient will be IPLOC. Time: 15:25 Reevaluation #3: Time: 18:14 Date: 08/31/24 Provider: Sigifredo Branham MD Physician observation ended at 10:00 AM. Patient has been cleared for discharge by the CARE team. Will follow up as an outpatient. the patient was seen and examined. He denies any thoughts of self-harm. He sounds extremely low risk if discharged. He seems to have some mild thought disorders but I do not feel that his description of his symptoms rises to the level of holding him against his will. He would like to be discharged. He seems eager to seek further care as an outpatient. He was therefore discharged and was given referrals by the CARE team for possible partial hospitalization program.. Medications Administered Discontinued Medications Generic Name Dose Route Start Last Admin Trade Name Freq PRN Reason Stop Dose Admin Haloperidol 5 mg 08/30/24 10:59 08/30/24 11:02 Haloperidol 5 Mg Tablet PO 08/30/24 11:00 5 mg ONCE ONE Administration Lorazepam 2 mg 08/30/24 10:42 08/30/24 10:55 Lorazepam 1 Mg Tablet PO 08/30/24 10:43 2 mg ONCE ONE Administration Medical Decision Making Medical Decision Making MDM Narrative: Patient is a 34-year-old male with a history of anxiety, hypercholesterolemia presenting to the emergency department reporting that he has been having racing thoughts, anxiety with physical manifestations of chest tightness and shortness of breath. On exam patient is awake, A+Ox3, VS WNL, afebrile, normal neurological exam without focal deficits, physical exam findings as above. Given reported symptoms and physical exam findings, initial differential includes but is not limited to anxiety, depression, suicidal ideation. Plan for medical clearance then CARE team eval. Labs unremarkable. Urine drug screen and ethanol negative. Will medically clear patient for care team evaluation at this time and place on physician observation at 11:45. Lab Data 08/30/24 10:03 08/30/24 10:03 Labs: Lab Results 08/30/24 08/30/24 Range/Units 10:03 11:17 WBC 6.2 (4.8-10.8) X10*3/uL RBC 5.25 (4.60-5.80) X10*6/uL Hgb 15.5 (14.0-18.0) g/dl Hct 45.2 (42.0-52.0) % MCV 86.1 (80.0-98.0) fL MCH 29.5 (27.0-33.0) pg MCHC 34.3 (31.0-36.0) g/dl RDW 13.2 (11.0-16.0) % Plt Count 302 (160-400) X10*3/uL MPV 8.8 L (9.4-12.4) fL Immature Gran % (Auto) 0.3 (0.0-0.4) % Neut % (Auto) 77.4 H (45-73) % Lymph % (Auto) 15.7 L (20-40) % [place] % (Auto) 6.1 (2-11) % Eos % (Auto) 0.2 (0-4) % Baso % (Auto) 0.3 (0-2) % Lymph # (Auto) 1.0 L (1.2-4.9) X10*3/uL [place] # (Auto) 0.4 (0.1-1.2) X10*3/uL Eos # (Auto) 0.0 (0.0-0.4) X10*3/uL Baso # (Auto) 0.0 (0.0-0.2) X10*3/uL Abs Immat Gran (auto) 0.02 (0.00-0.03) X10*3/uL Absolute Neuts (auto) 4.8 (2.0-8.3) x10*3/uL Absolute Nucleated RBC 0.000 (0.0-0.012) X10*3/uL Nucleated RBC % (auto) 0.0 (0.0-0.2) /100WBC Sodium 142 (135-145) mmol/L Potassium 3.9 (3.3-5.1) mmol/L Chloride 108 (96-108) mmol/L Carbon Dioxide 24 (22-29) mmol/L Anion Gap 14 (12-20) BUN 9 (9-16) mg/dL Creatinine 0.83 (0.5-1.4) mg/dL Estim Creat Clear Calc 160.7 Estimated GFR > 60 Random Glucose 117 H (60-115) mg/dL Calcium 9.1 (8.4-10.2) mg/dL Total Bilirubin 0.5 (0.0-1.0) mg/dL AST 19 (5-37) U/L ALT 21 (0-40) U/L Alkaline Phosphatase 51 (39-117) U/L Total Protein 7.4 (6.5-8.0) g/dL Albumin 4.6 (3.5-5.0) g/dL Urine Color Yellow Urine Appearance Clear Urine pH 5.5 (5.0-9.0) Ur Specific [place] 1.025 (1.005-1.025) Urine Protein Negative (Neg-Trace) mg/dL Urine Glucose (UA) Negative (Negative) mg/dL Urine Ketones 40 (Negative) mg/dL Urine Blood Negative (Negative) Urine Nitrite Negative (Negative) Ur Leukocyte Esterase Negative (Negative) Salicylates < 5.0 L (15-30) mg/dL Urine Opiates Screen Not Detected (Not Detect) Ur Buprenorphine Scrn Not Detected (Not Detect) ng/mL Ur Oxycodone Screen Not Detected (Not Detect) ng/mL Urine Methadone Screen Not Detected (Not Detect) ng/mL Urine Fentanyl Screen Not Detected (Not Detect) Acetaminophen < 3 (<30) mcg/mL Ur Barbiturates Screen Not Detected (Not Detect) Ur Phencyclidine Scrn Not Detected (Not Detect) Ur Amphetamines Screen Not Detected (Not Detect) U Benzodiazepines Scrn Not Detected (Not Detect) Urine Cocaine Screen Not Detected (Not Detect) U Marijuana (THC) Screen Not Detected (Not Detect) Ethyl Alcohol < 10 mg/dL Independent Interpretation I performed an independent interpretation of an: EKG (normal sinus rhythm, rate 83bpm, normal [place] interval and QTc, no significant change from prior) Discharge Plan Discharge Clinical Impression: Encounter for behavioral health screening Patient Disposition: Home, Self-Care Additional Instructions: Please follow up with your regular providers. Please also follow up with any recommendations made by the CARE team. Continue your regular medications. Return to the emergency room if you feel significantly worse. Prescriptions: No Action gabapentin 300 mg capsule 300 mg PO TID fluoxetine 20 mg capsule 40 mg PO DAILY clonazepam 0.5 mg tablet 0.5 mg PO DAILY PRN (Reason: anxiety) Interventions: [place]-Suicide Risk Severity Scale Last Done: 08/31/24 10:17 ED Discharge Assessment Last Done: 08/31/24 10:17 Discharge Date/Time: 08/31/24 10:19 Print Language: Macedonian
[2024-08-30 09:46] VITALS: RESP 16
--- NOTE | 2024-08-30 09:56 | PC.NURSE ---
pt requested this RN call his mom to give her update that he is safe. This RN called Vicki (mom) who is now updated on plan of care
[2024-08-30 10:09] LABS: MANUAL DIFF FLAG NO
[2024-08-30 10:10] LABS: Basophils Percent Auto 0.3 % (0-2); Eosinophils Percent Auto 0.2 % (0-4); Hematocrit 45.2 % (42.0-52.0); Hemoglobin 15.5 g/dl (14.0-18.0); Imm Gran Abs Auto 0.02 X10*3/uL (0.00-0.03); Imm Gran Pct Auto 0.3 % (0.0-0.4); Lymphocytes Percent Auto 15.7 % (20-40); Mean Corpuscular HGB Conc 34.3 g/dl (31.0-36.0); Mean Corpuscular Hemoglobin 29.5 pg (27.0-33.0); Mean Corpuscular Volume 86.1 fL (80.0-98.0); Mean Platelet Volume 8.8 fL (9.4-12.4); Monocytes Absolute Auto 0.4 X10*3/uL (0.1-1.2); Monocytes Percent Auto 6.1 % (2-11); Neutrophils Absolute Auto 4.8 x10*3/uL (2.0-8.3); Neutrophils Percent Auto 77.4 % (45-73); Platelet Count 302 X10*3/uL (160-400); Red Blood Count 5.25 X10*6/uL (4.60-5.80); Red Cell Distribution Width 13.2 % (11.0-16.0); White Blood Count 6.2 X10*3/uL (4.8-10.8)
[2024-08-30 10:24] LABS: Acetaminophen LAB < 3 mcg/mL (<30); Alanine Aminotransferase 21 U/L (0-40); Albumin Level 4.6 g/dL (3.5-5.0); Alkaline Phosphatase 51 U/L (39-117); Anion Gap 14 (12-20); Aspartate Amino Transferase 19 U/L (5-37); Bilirubin Total 0.5 mg/dL (0.0-1.0); Blood Urea Nitrogen 9 mg/dL (9-16); Calcium 9.1 mg/dL (8.4-10.2); Carbon Dioxide 24 mmol/L (22-29); Chloride 108 mmol/L (96-108); Creatinine Clr Calc Pharmacy 160.7; Estimated Glomerular Filt Rate > 60; Ethanol < 10 mg/dL; Glucose Random 117 mg/dL (60-115); Potassium 3.9 mmol/L (3.3-5.1); Salicylate < 5.0 mg/dL (15-30); Sodium 142 mmol/L (135-145); Total Protein 7.4 g/dL (6.5-8.0)
[2024-08-30] MEDS: LORazepam 1 MG TABLET 2 MG PO (10:55)
[2024-08-30] MEDS: HaloperidoL 5 MG TABLET PO (11:02)
--- NOTE | 2024-08-30 11:04 | PC.NURSE ---
Pt began pacing around pod, then exclaimed I'm fucking aren't I, this is it . Staff attempted to console pt however, he continued to escalate, panicking, claiming that staff knew Kami . Pt demanding that staff bring Akmi here . When educated that we are unaware of who Kami is, pt yelled Yes you fucking do, you know who the fuck Kami is . Pt then began charging at [facility]. Security called to pod, LOULOU Guerrier made aware. PO medications ordered. Pt questioning staff and security why the fuck are yall smiling, you guys are just goofing . Shortly after the first outburst, pt came to , looked around at staff and stated oh my god, what happened, I'm so sorry . Pt moved to 2, encouraged to lay down and rest and let the medications take effect
--- OUTSIDE RECORDS SUMMARY | 2024-08-30 11:06 | XMS_ITS | Clinical Summary ---
Author Organization [facility] Address [address] [place] [id number] Phone Care Team Providers Care Rotary Machine Operator Name Role Phone Shantell Howell MD Primary Care Provider Santi ilbrianda Immunizations Immunization Administration Dates Next Due DTP 03/10/1996, 3,1991,07/08,1991 Hep B, ped/adol 06/10/1996,02/10/1996,03/10/1995 Hib (PRP-T) 07/08/1992, 2,1991,05/08 IPV 03/10/1996, 3,1991,05/08 Influenza, injectable, trivalent 01/12/2005,02/08 MMR 03/10/1995,07/08/1992 Meningococcal Conj (Menactra) MCV4P 09/08/2007 Td (adult) (MBL), 2 Lf tetan us toxoid, PF, adsorbed 09/14/2002 Tdap 09/08/2007 Family History Relation Name Status Comments Father Alive Father: Hyperte nsion,elevated cholestrol, M.I. Mother Alive Mother: hyperte nsion and elevated cholestrol Sister 1 Alive Sister: Alive a nd well, Alive and well Sister 2 Alive Sister: Alive a nd well, Alive and well Social History Tobacco Use Types Packs/Day Years Used Date Smoking Tobacco: Never Assessed Sex and Gender Information Value Date Recorded Sex Assigned at Not on file Legal Sex Male 4:34 PM EDT Gender Identity Not on file Sexual Orientation Not on file Last Filed Vital Signs Vital Sign Reading Time Taken Comments Blood Pressure - - Pulse - - Temperature 36.3 C (97.4 F) 07/10/2010 12:00 AM EDT Respiratory Rate - - Oxygen Saturation - - Inhaled Oxygen Concentration - - Weight 127 kg (280 lb) 07/10/2010 12:00 AM EDT Height - - Body Mass Index - - Plan of Treatment Health Maintenance Due Date Last Done Comments Varicella Vaccines (1 of 2 - 13+ 2-dose series) 02/09/2004 DTaP,Tdap,and Td Vaccines (7 - Td or Tdap) 09/07/2017 09/08/2007, 09/14/2002, 03/10/1996, Additional history exists Influenza Vaccines (#1) 2023 01/12/2005, 02/22 COVID-19 Vaccine ( season) 2023 HIB Vaccines Completed 07/08/1992, 08/11, 1991, Additional history exists MMR Vaccines Completed 03/10/1995, 07/08/1992 IPV Vaccines Completed 03/10/1996, 09/10, 1991, Additional history exists Hepatitis B Vaccines Completed 06/10/1996, 02/10/1996, 03/10/1995 Meningococcal Vaccine Completed 09/08/2007 HPV Vaccines Aged Out No longer eligi ble based on patient's age to complete this topic Hepatitis A Vaccines Aged Out No long er eligible based on patient's age to complete this topic Men B Vaccine Aged Out No longer elig ible based on patient's age to complete this topic Pneumococcal Vaccine Aged Out No long er eligible based on patient's age to complete this topic Care Teams Rotary Machine Operator Relationship Specialty Start Date End Date Shantell Howell MD PCP - General 10/19/16
[2024-08-30 11:29] LABS: Appearance Urine Clear; Color Urine Yellow; Glucose Urine UA Negative (Negative); Leukocyte Esterase Urine Negative (Negative); Nitrite Urine Negative (Negative); PH 5.5 (5.0-9.0); Specific Gravity - Urine 1.025 (1.005-1.025); Urine Blood Negative (Negative); Urine Ketones 40 mg/dL (Negative); Urine Protein Negative (Neg-Trace)
[2024-08-30 11:39] LABS: Amphetamine Screen Urine Not Detected (Not Detect); Barbiturates, Urine Not Detected (Not Detect); Benzodiazepines Screen Urine Not Detected (Not Detect); Buprenorphine Scr Not Detected (Not Detect); Cannabinoid Screen Urine Not Detected (Not Detect); Cocaine Screen Urine Not Detected (Not Detect); Fentanyl, urine Not Detected (Not Detect); Methadone Screen, Urine Not Detected (Not Detect); Opiate Screen Urine Not Detected (Not Detect); Oxycodone Screen Urine Not Detected (Not Detect); Phencyclidine Screen Urine Not Detected (Not Detect)
[2024-08-30 14:00] VITALS: RESP 16
--- NOTE | 2024-08-30 16:39 | PC.NURSE ---
pt appears to be sleeping, respirations even and unlabored, no apparent distress
--- NOTE | 2024-08-30 19:38 | PC.NURSE ---
pt awake at this time calm and cooperative, came out of his room to use the phone
[2024-08-31 05:37] VITALS: BP 135/76; PULSE 104; RESP 18; TEMP 36.3; O2SAT 98
--- NOTE | 2024-08-31 05:48 | PC.NURSE ---
pt would like to speak to CARE Team this morning
--- NOTE | 2024-08-31 09:41 | MHC.CARE ---
Pt no longer meets the criteria for IPLOC and will be discharged with a referral to [facility] for OP therapy. ED provider in agreement.
[2024-08-31 10:17] VITALS: BP 135/76; PULSE 104; RESP 18; TEMP 36.3; O2SAT 98
== END 2024-08-31 10:19 | disposition home or self-care (01) ==
PROVIDERS: Registered Nurse Emergency; Emergency Provider Emergency Medicine
DX: F41.9 Anxiety disorder, unspecified (principal); F33.1 Major depressive disorder, recurrent, moderate; R45.851 Suicidal ideations; R06.02 Shortness of breath; R07.89 Other chest pain; Z79.899 Other long term (current) drug therapy; Z51.81 Encounter for therapeutic drug level monitoring
CPT/HCPCS: 36415; 80053; 80143; 80179; 80307; 81003; 85025; 93005; 99285; S9485

== ENCOUNTER → 2024-08-30 09:41 | Outpatient (BNV) | payer OTHER, SELFPAY | PROVIDERS: Emergency Provider Emergency Medicine; Visit Provider Internal Medicine | DX: R94.31 Abnormal electrocardiogram [ECG] [EKG] (principal); Z13.6 Encounter for screening for cardiovascular disorders | CPT/HCPCS: 93010 ==

== ENCOUNTER 2024-10-30 11:39 | Outpatient (REF) | payer OTHER, SELFPAY ==
--- OUTSIDE RECORDS SUMMARY | 2024-10-30 11:44 | XMS_ITS | Clinical Summary ---
Author Organization [facility] Address [address] [place] [address] Phone Care Team Providers Care Roof Truss Builder Name Role Phone Shantell Howell MD Primary [...] 09/07/2017 09/08/2007, 09/14/2002, 03/10/1996, Additional history exists HPV Vaccines (1 - 3-dose SCDM series) 2018 COVID-19 Vaccine ( season) 2023 Influenza Vaccines (#1) 2024 01/12/2005, 02/22 HIB Vaccines Completed 07/08/1992, 08/11, 1991, Additional history exists MMR Vaccines Completed 03/10/1995, 07/08/1992 IPV Vaccines Completed 03/10/1996, 09/10, 1991, Additional history exists Hepatitis B Vaccines Completed 06/10/1996, 02/10/1996, 03/10/1995 Meningococcal Vaccine Completed 09/08/2007 Hepatitis A Vaccines Aged Out No long er eligible based on patient's age to complete this topic Men B Vaccine Aged Out No longer elig ible based on patient's age to complete this topic Pneumococcal Vaccine Aged Out No long er eligible based on patient's age to complete this topic Care Teams Roof Truss Builder Relationship Specialty Start Date End Date Shantell Howell MD PCP - General 10/19/16
--- OUTSIDE RECORDS SUMMARY | 2024-10-30 11:44 | XMS_ITS | Encounter Summary ---
Author Organization [facility] Address [address] [place] [phone] Phone Care Team Providers Care Student Nurse Name Role Phone Wolfgang Staley MD Primary Care Provider [phone]- [phone] Encounter Details Date Type Department Care Team (Late st Contact Info) Description 09/22/2019 Transcribe Orders Virtual Department [address] [place] [address] Dhruv Currie MD [address] [place] [address] 204, [address] [place] [address] [email or web address] Exposure to SARS virus (Primary Dx) Social History Tobacco Use Types Packs/Day Years Used Date Smoking Tobacco: Never Assessed Sex and Gender Information Value Date Recorded Sex Assigned at Not on file Legal Sex Male 4:29 PM EDT Gender Identity Not on file Sexual Orientation Not on file documented as of this encounter Plan of Treatment Not on file documented as of this encounter Results * COVID-19 PCR Order (09/24/2019 11:18 AM EDT) Specimen Source NASOPHARYNGEAL SWAB (PULPER) [facility] COVID Testing Status Sent to [facility] Micro Lab [facility] Other 09/24/2019 11:1 8 AM EDT 09/24/2019 12:52 PM EDT us Dhruv Currie MD BODY FLUIDS AND STOOLS ORDERABLE S Final Result [facility] [address] [place] [address] documented in this encounter Visit Diagnoses Diagnosis Exposure to SARS virus- Primary Exposure to SARS-associated coronavirus documented in this encounter Additional Health Concerns Infection Onset Date Last Indicated Resolved Time CoV-Exposed Comment:Recent close contact 09/22/2019 09/22/2019 10/06/2019 1:26 AM EDT documented as of this encounter Care Teams Student Nurse Relationship Specialty Start Date End Date Wolfgang Staley MD [email or web address] PCP - General Internal Medicine 06/28/19 documented as of this encounter Additional Source Comments The information contained in this document represents components of the legal health record. It is not the complete legal health record.[facility]
[2024-10-30 15:12] LABS: Alanine Aminotransferase 24 U/L (0-40); Albumin Level 4.3 g/dL (3.5-5.0); Alkaline Phosphatase 60 U/L (39-117); Anion Gap 9 (12-20); Aspartate Amino Transferase 23 U/L (5-37); Blood Urea Nitrogen 17 mg/dL (9-16); Calcium 8.8 mg/dL (8.4-10.2); Carbon Dioxide 27 mmol/L (22-29); Chloride 107 mmol/L (96-108); Cholesterol 233 mg/dL (<200); Estimated Glomerular Filt Rate > 60; HDL Cholesterol 55 mg/dL (>40); Potassium 3.9 mmol/L (3.3-5.1); Sodium 139 mmol/L (135-145); Total Protein 7.0 g/dL (6.5-8.0); Triglycerides 71 mg/dL (<150)
== END 2024-10-30 11:40 | disposition home or self-care (01) ==
LOC: HO.HMGCLDS 11:39
PROVIDERS: PCP Nurse Practitioner Family; Visit Provider Nurse Practitioner Family
DX: E78.5 Hyperlipidemia, unspecified (principal)
CPT/HCPCS: 36415; 80053; 80061

== ENCOUNTER 2024-11-18 10:19 | Outpatient (AMB) | payer OTHER, SELFPAY ==
[2024-11-18 10:21] VITALS: BP 124/80; PULSE 96; RESP 19; O2SAT 97; BMI 36.7
--- NOTE | 2024-11-18 10:21 | MHC.PC.OV ---
Vital Signs 11/18/24 10:21 Height 5 ft 10 in Weight 256 lb BMI 36.7 BP 124/80 Blood Pressure Location Lt brachial Position Sitting Respiration 19 Pulse 96 Pulse Source Pulse Oximeter Pulse Oximetry (%) 97 Oxygen Delivery Method Room Air Intake Visit Reasons: PE Intake Note: Pt is here today for PE. Allergies No Known Allergies (No Known Allergies*) Allergy (Verified 11/18/24 10:41) Medication List - Last Reconciled 11/18/24 by ALISTAIR Jaimes- clonazepam 0.5 mg PO DAILY PRN fluoxetine 40 mg PO DAILY gabapentin 300 mg PO TID Tobacco use date assessed: 11/18/24 Dental Screening Dental Screen Date: 11/18/24 Did you have a dental visit in the last 12 months?: No Did you have a dental problem in the last 6 months where you did not have access to dental care?: No Was dental information given to patient?: Patient declined HPI PE HPI Details History of Present Illness The patient is a 34-year-old male presenting with a physical exam and denies symptoms including chest pain, dyspnea, abdominal pain, hematochezia, constipation, and diarrhea. The patient reports experiencing chest pain and dyspnea, which are new symptoms for him. He has also been experiencing abdominal pain, blood in stool, constipation, and diarrhea. The patient is currently under the care of a therapist and a psychiatrist, and he reports doing quite well in terms of mental health. He has started going to the gym and is focusing on improving his diet, which has resulted in some weight loss and improved cholesterol levels. He is obese, but his physical exam was otherwise benign. Health Maintenance - Exercise: Patient has started going to the gym - Diet: Patient is focusing on improving his diet - Weight management: Patient is losing weight - Cholesterol management: Patient's cholesterol levels are improving - Preventative care: Fasting labs in 3 months Social History - Exercise: Patient has started going to the gym - Diet: Patient is focusing on improving his diet Review of Systems denies any cp, sob, fevers, chills, n/v, abd pain, si or hi Physical Exam General: Cooperative, healthy appearing, comfortable, no acute distress and well developed Orientation: Patient oriented x3 Limitations: No limitations Head: Normal to inspection Ears: Hearing grossly normal bilaterally Nose: Normal external nose present Face and sinus: Normal facial exam Eyes: Appearance normal, both eyes and all related structures Neck: Normal visual inspection and Yes full ROM Respiratory: Normal respiratory effort and able to speak in complete sentences. Clear to auscultation bilaterally Cardiovascular: Regular rate and rhythm. Normal S1 and S2 GI: Normal to inspection. Soft to palpation and nontender : testicles without masses/lesions and no hernias appreciated Skin: No rashes or lesions noted Neuro: Patient oriented x3 Extremities: Normal to inspection Results Plan encouraged to get lab [facility] Medical History Immunization declined Anxiety Elevated liver enzymes Palpitations Chronic GERD Surgical History No pertinent past surgical history Family History Paternal Grandfather Mental health disorder Paternal Grandmother Mental health disorder Social History Housing: Apartment Patient Tobacco Use Status: Never used Tobacco e-Cigarette/Vaping Use: Never Used Second Hand Smoke Exposure: No service: No Current occupational status: employed Current occupation: [employer] Current occupational exposures/hazards: No Cognitive needs: No Hearing needs: No Vision needs: No Questionnaire PHQ-9 Over the last 2 weeks, how often have you been bothered by any of the following problems? 1. Little interest or pleasure in doing things: several days 2. Feeling down, depressed, or hopeless: several days 3. Trouble falling or staying asleep, or sleeping too much: several days 4. Feeling tired or having little energy: several days 5. Poor appetite or overeating: several days 6. Feeling bad about yourself - or that you are a failure or have let yourself or your family down: several days 7. Trouble concentrating on things, such as reading the newspaper or watching television: not at all 8. Moving or speaking so slowly that other people could have noticed. Or the opposite - being so fidgety or restless that you have been moving around a lot more than usual: not at all 9. Thoughts that you would be better off or of hurting yourself in some way: not at all Total score: 6 Depression Screening Interpretation: Negative Depression Screening Done: Yes 79335 - PHQ-9 Billing: Yes Source: Developed by Drs. Shayan Preston, Korin Sandra, Jd Solomon and colleagues, with an educational crispin from [employer]. Thrive Questionnaire Date Thrive assessed: 03/19/24 I am a: Patient What is your living situation today?: I have a steady place to live Within the past 12 months, did the food you bought not last and you didn't have the money to get more?: Never true Within the past 12 months, did you worry whether your food would run out before you got money to buy more?: Never true Do you have trouble paying for medicines?: I choose not to answer this question Do you have trouble getting transportation to medical appointments?: No Do you have trouble paying your heating and electricity bill?: No Do you have trouble taking care of your child, family member or friend?: No Do you have trouble with day-to-day activities such as bathing, preparing meals, shopping, managing finances, etc.?: No Are you currently unemployed and looking for a job?: No Are you interested in more education?: Yes Please select the resources that you would like help with: None Currently or been in a relationship where the following occur: No concerns reported THRIVE Score: 0 ERIC-7 AMB Questionnaire ERIC-7 Date ERIC - 7 assessed: 11/18/24 Feeling nervous, anxious, or on edge: 1 = Several days Not being able to stop or control worryin = Several days Worrying too much about different things: 0 = Not at all Trouble relaxin = Several days Being so restless that it is hard to sit still: 0 = Not at all Becoming easily annoyed or irritable: 1 = Several days Feeling afraid as if something awful might happen: 1 = Several days Total ERIC-7 score (0-4 normal; 5-9 mild; 10-14 moderate; 15-21 severe): 5 Source: Developed by Drs. Shayan Preston, Jd Helm and colleagues, with an educational crispin from [employer]. ERIC-7 Assessment Billing ERIC-7 Assessment Tool: ERIC-7 Assessment 84560 Physical exam (Primary Care) Vital Signs: Last Vital Signs Pulse 96 11/18/24 10:21 Resp 19 11/18/24 10:21 BP 124/80 11/18/24 10:21 Pulse Ox 97 11/18/24 10:21 Oxygen Delivery Method Room Air 11/18/24 10:21 BMI result Body Mass Index 36.7 Tobacco/Smoking Status: Tobacco use Status Tobacco use date assessed 11/18/24 11/18/24 10:26 Patient Tobacco Use Status Never used Tobacco 11/18/24 10:26 e-Cigarette/Vaping Use Never Used 11/18/24 10:26 Depression Screening Interpretation: Negative Thrive Assessment: Date of Thrive Assessment Date Thrive assessed 03/19/24 11/18/24 10:26 Currently or been in a relationship where the following occur: No concerns reported Coding Level of Care Code Est Pt Prev Care 18-39y(79733) Diagnoses Physical exam Z00.00 Additional Codes ERIC-7 Assessment Billing - ERIC-7 Assessment Tool: ERIC-7 Assessment 79824 ([id number]) PHQ-9 - 92788 - PHQ-9 Billing: Yes ([id number]) Assessment & Plan Assessment & Plan (1) Physical exam: Code(s): Z00.00 - Encounter for general adult medical examination without abnormal findings Category: Medical Plan . Orders: Orders Complete Blood Count Auto Diff Today Z00.00 - Encounter for general adult medical examination without abnormal findings Lipid Panel Today Z00.00 - Encounter for general adult medical examination without abnormal findings Comprehensive [place]. Panel Fast Today Z00.00 - Encounter for general adult medical examination without abnormal findings TSH reflex Free T4 Today Z00.00 - Encounter for general adult medical examination without abnormal findings UA CC w/rflx Micro + Cult Today Z00.00 - Encounter for general adult medical examination without abnormal findings
--- OUTSIDE RECORDS SUMMARY | 2024-11-18 12:34 | XMS_ITS | Encounter Summary ---
Author Organization [facility] Address [address] [place] [address] Phone Care Team Providers Care Photographic Equipment Inspector Name Role Phone Wolfgang Staley MD Primary Care Provider [phone]- [phone] Encounter Details Date Type Department Care Team (Late st Contact Info) Description 09/22/2019 Transcribe Orders Virtual Department [address] [place] [address] Dhruv Currie MD [address] [place] [address] 204, [address] [place] [address] [email or web address] Exposure to SARS virus (Primary Dx) Social [...] 11:18 AM EDT) Specimen Source NASOPHARYNGEAL SWAB (ARCHIVAL RECORDS CLERK) [facility] COVID Testing Status Sent to [facility] Micro Lab [facility] Other 09/24/2019 11:1 8 AM EDT 09/24/2019 12:52 PM EDT us Dhruv Currie MD BODY FLUIDS AND STOOLS ORDERABLE S Final Result [facility] [address] [place] [address] documented in this encounter Visit Diagnoses Diagnosis Exposure to SARS virus- Primary Exposure to SARS-associated coronavirus documented in this encounter Additional Health Concerns Infection Onset Date Last Indicated Resolved Time CoV-Exposed Comment:Recent close contact 09/22/2019 09/22/2019 10/06/2019 1:26 AM EDT documented as of this encounter Care Teams Photographic Equipment Inspector Relationship Specialty Start Date End Date Wolfgang Staley MD [email or web address] PCP - General Internal Medicine 06/28/19 documented as of this encounter Additional Source Comments The information contained in this document represents components of the legal health record. It is not the complete legal health record.[facility]
--- OUTSIDE RECORDS SUMMARY | 2024-11-18 12:35 | XMS_ITS | Encounter Summary ---
Author Organization [facility] Address [address] [place] [address] Phone Care Team Providers Care Facilities Officer Name Role Phone Shantell Howell MD Primary Care Provider Unava ilable Encounter Details Date Type Department Care Team (Late st Contact Info) Description 10/25/2016 Conversion Encounter [facility] - [address] [address] Social History Tobacco Use Types Packs/Day Years Used Date Smoking Tobacco: Never Assessed Sex and Gender Information Value Date Recorded Sex Assigned at Not on file Legal Sex Male 4:34 PM EDT Gender Identity Not on file Sexual Orientation Not on file documented as of this encounter Plan of Treatment Not on file documented as of this encounter Visit Diagnoses Not on filedocumented in this encounter Care Teams Facilities Officer Relationship Specialty Start Date End Date Shantell Howell MD PCP - General 10/19/16 documented as of this encounter
--- OUTSIDE RECORDS SUMMARY | 2024-11-18 12:35 | XMS_ITS | Clinical Summary ---
Author Organization [facility] Address [address] [place] [address] Phone Care Team Providers Care Medical Receptionist Medical Assistant Name Role Phone Shantell Howell MD Primary Care Provider Sanit ilbrianda Immunizations Immunization Administration Dates Next Due [...] Vaccines (1 - 3-dose SCDM series) 2018 Influenza Vaccines (#1) 2024 01/12/2005, 02/22 COVID-19 Vaccine ( season) 2024 HIB Vaccines Completed 07/08/1992, 08/11, 1991, Additional [...] age to complete this topic Care Teams Medical Receptionist Medical Assistant Relationship Specialty Start Date End Date Shantell Howell MD PCP - General 10/19/16
--- OUTSIDE RECORDS SUMMARY | 2024-11-18 12:35 | XMS_ITS | Encounter Summary ---
Author Organization [facility] Address [address] [place] [address] Phone Care Team Providers Care Bridge Manager Name Role Phone Shantell Howell MD Primary Care Provider Unava ilable Encounter Details Date Type Department Care Team (Late st Contact Info) Description 04/17/2016 Documentation [facility] Family Medicine [address] [place] [address] Family Medicine, Physician [address] [place], [place] [id number] Social History Tobacco Use Types Packs/Day Years [...] on filedocumented in this encounter Care Teams Bridge Manager Relationship Specialty Start Date End Date Shantell Howell MD PCP - General 10/19/16 documented as of this encounter
--- OUTSIDE RECORDS SUMMARY | 2024-11-18 12:35 | XMS_ITS | Clinical Summary ---
Author Organization [facility] Address [address] [place], [place] [phone] Phone Care Team Providers Care Beef Trimmer Name Role Phone Wolfgang Staley MD Primary Care Provider +1- [phone] Social History Tobacco Use Types Packs/Day Years Used Date Smoking Tobacco: Never Assessed Education Answer Date Recorded Are you interested in more education? Not on thony e 07/06/2022 Are you concerned about learning? Not on file 07/06/2022 No 07/06/2022 No 07/06/2022 Digital Access Answer Date Recorded No 08/04/2022 No 08/04/2022 No 08/04/2022 Reliable internet access at home? Not on file 08/04/2022 Device with a working camera? Not on file Sex and Gender Information Value Date Recorded Sex Assigned at Not on file Legal Sex Male 4:29 PM EDT Gender Identity Not on file Sexual Orientation Not on file Plan of Treatment Health Maintenance Due Date Last Done Comments DEPRESSION SCREENING 2003 SMOKING Hx and SMOKELESS TOBACCO SCREENING 02/09/2004 HEPATITIS C SCREENING 2009 HIV ONE-TIME SCREENING (18-65 YEARS) 2009 INFLUENZA VACCINE (#1) 2024 01/12/2005, 2002 COVID-19 VACCINE ( season) 2024 11/12/2020, 10/15/2020 Adult Td,Tdap Booster 05/07/2028 05/07/2018 , 09/08/2007, 09/14/2002 HIB VACCINES Completed 07/08/1992, 08/11, 1991, Additional history exists MENINGOCOCCAL VACCINES (ACWY) Completed 11/08/2007, 09/08/2007 HEPATITIS A VACCINES Aged Out No long er eligible based on patient's age to complete this topic MENINGOCOCCAL VACCINES (B) Aged Out N o longer eligible based on patient's age to complete this topic PNEUMOCOCCAL VACCINES (0-49 years) Aged Out No longer eligible based on patient's age to complete this topic Medical Devices Not on file Insurance [facility] NON NSPG PCP [employer] CONNECTORCARE [facility] NON NSPG PCP S[employer] CONNECTORCARE [facility] NON NSPG PCP SILVER [employer] CONNECTORCARE [employer] NON NSPG PCP [employer]CARE [employer] NON NSPG PCP [employer] CONNE[employer]CARE [employer] NON NSPG PCP [employer] CONNE[employer]CARE [employer] NON NSPG PCP S[employer] CONNECTORCARE [employer] NON NSPG PCP SILVER CL[employer] CONNECTORCARE [employer] NON NSPG PCP S[employer] CONNECTORCARE Care Teams Beef Trimmer Relationship Specialty Start Date End Date Wolfgang Staley MD [email or web address] PCP - General Internal Medicine 06/28/19 Additional Source Comments The information contained in this document represents components of the legal health record. It is not the complete legal health record.[facility]
== END 2024-11-18 13:30 | disposition home or self-care (01) ==
LOC: HO.HMCC 10:20
PROVIDERS: PCP Nurse Practitioner Family; Visit Provider Nurse Practitioner Family
DX: Z00.00 Encounter for general adult medical examination without abnormal findings (principal)

== ENCOUNTER → 2024-11-18 10:19 | Outpatient (BNVA) | payer OTHER, SELFPAY | PROVIDERS: PCP Nurse Practitioner Family; Visit Provider Nurse Practitioner Family | DX: Z00.00 Encounter for general adult medical examination without abnormal findings (principal); R07.9 Chest pain, unspecified; R06.00 Dyspnea, unspecified; R10.9 Unspecified abdominal pain; R19.5 Other fecal abnormalities; K59.00 Constipation, unspecified; R19.7 Diarrhea, unspecified | CPT/HCPCS: 96127; 99395 ==